=== PATIENT | female | born 1995 | race African-American/Black ===

== ENCOUNTER 2021-05-30 07:14 | Emergency (ER) | payer OTHER, MEDICAID ==
[~2021-05-30] VITALS: Ht 177.8 cm; Wt 104.0 kg
[2021-05-30] MEDS ORDERED: TETANUS, DIPHTHERIA, PERTUSSIS VAC/PF 0.5ML (>10YR OLD) IM ONE (08:15)
[2021-05-30] MEDS ORDERED: LIDOCAINE HCL/PF 1% 10 MG/ML 5ML VIAL INFIL ONE (08:15)
[2021-05-30] MEDS ORDERED: BACITRACIN ZINC OINT UDPKT TOP ONE (08:15)
[2021-05-30] MEDS ORDERED: ACETAMINOPHEN 325MG TABLET PO ONE (08:15)
[2021-05-30] MEDS ORDERED: ACET-2708 MT (09:39)
[2021-05-30 10:42] VITALS: BP 117/87
== END 2021-05-30 10:43 | disposition home or self-care (01) ==
LOC: ER 07:28
DX: S00.81XA Abrasion of other part of head, initial encounter (principal); S93.491A Sprain of other ligament of right ankle, initial encounter; S50.812A Abrasion of left forearm, initial encounter; I10 Essential (primary) hypertension; J45.909 Unspecified asthma, uncomplicated; V43.52XA Car driver injured in collision with other type car in traffic accident, initial encounter; Y93.89 Activity, other specified; Y92.410 Unspecified street and highway as the place of occurrence of the external cause
CPT/HCPCS: 73610; 99283; J3490; Z7610